=== PATIENT | female | born 1990 | race Caucasian/White ===

== ENCOUNTER 2016-06-05 11:35 | Emergency (ER) | payer SELFPAY ==
--- NOTE | ~2016-06-05 | ER ---
PATIENT'S NAME: BECKY TAYLOR [facility] AGE: 26 Y [address] ROOM: [place] [address] LOCATION: [facility] ADMIT DATE: 06/05/2016 ER/Outpatient Report DISCHARGE DATE: 06/05/2016 FAMILY PHYSICIAN: PHYSICIAN, NO ATTENDING PHYSICIAN: Trena Lux CHIEF COMPLAINT: Abdominal pain. HISTORY OF PRESENT ILLNESS: The patient states that she has had some generalized abdominal pain for the past month. However, today, it has become much more sharp and constant. States she has had chills, has been nauseated and vomiting on a daily basis in the mornings. States that she could potentially be . States she had a diarrhea stool this morning. Denies any blood of the stool or the vomitus. ALLERGIES: SEROQUEL. CURRENT MEDICATIONS: Effexor. PAST MEDICAL HISTORY: Depression. PAST SURGERIES: Tonsillectomy and adenoidectomy, ear tubes. SOCIAL HISTORY: The patient reports that she is a recovering drug addict. Has not had any alcohol for the past month. Last used meth three years ago. Last used marijuana in January. Does smoke down to about 2-3 cigarettes per day. She is here in the ER with her mother. REVIEW OF SYSTEMS: She states she has had some pain with urination and frequency of urination. Does have burning for the last 2 days. PHYSICAL EXAMINATION: VITAL SIGNS: She weighs 113.3 kg; blood pressure is 116/74; pulse of 84, respirations 20; temperature of 99.1, tympanic; and O2 saturation is 98% on room air. GENERAL: She is awake, alert, and oriented x4. SKIN: [place], warm, and dry. LUNGS: Respirations are even and nonlabored. Lung sounds were clear PATIENT'S NAME: BECKY TAYLOR [facility] AGE: 26 Y [address] ROOM: [place] [address] LOCATION: [facility] ADMIT DATE: 06/05/2016 ER/Outpatient Report DISCHARGE DATE: 06/05/2016 FAMILY PHYSICIAN: PHYSICIAN, NO ATTENDING PHYSICIAN: Trena Lux throughout. HEART: Regular rate and rhythm. ABDOMEN: Soft, nondistended. Bowel sounds are present. She is tender in the lower quadrants. LABORATORY DATA: Clean-catch UA was obtained. CBC is within normal limits. Chem panel is within normal limits. Amylase is 26 with a lipase of 64. Urine does have 500 leukocytes, white blood cells are 10-20, 10-20 epithelials also, bacteria is moderate. The patient was given Rocephin 1 g IM. IMPRESSION: Urinary tract infection. PLAN: Home, rest, fluids. Tylenol or ibuprofen as needed for fever or discomfort. Prescription was written for Bactrim DS. If symptoms persist or worsen, she is to follow up with her primary provider in the next 2-3 days or return to the ER. She verbalized understanding. IVY FRANKS APRN FOR MD JENNIFER TIWARI/michelle /[id number] d: 06/05/162111 t: 06/09/16 1341, OUTPATIENT REPORT
[2016-06-05 12:17] LABS: BILIRUBIN URINE NEGATIVE (NEGATIVE); BLOOD URINE 250 /UL (NEGATIVE); COLOR URINE YELLOW (YELLOW); GLUCOSE URINE NEGATIVE (NEGATIVE); KETONE URINE NEGATIVE (NEGATIVE); LEUKOCYTES URINE 500 /UL (NEGATIVE); NITRITE URINE NEGATIVE (NEGATIVE); PROTEIN URINE 30 mg/dL (NEGATIVE); TURBIDITY URINE CLEAR (CLEAR); UROBILINOGEN URINE NORMAL (NORMAL)
[2016-06-05 12:25] LABS: BASOPHIL % 0.3 %; EOSINOPHIL % 0.6 %; HEMATOCRIT 40.1 % (33.0-46.0); HEMOGLOBIN 13.1 g/dL (11.0-15.0); IMMATURE GRANULOCYTE % 0.3 %; LYMPHOCYTE % 15.5 %; MCH 26.5 pg (27.0-34.0); MCHC 32.7 gm/dL (32.0-36.5); MCV 81.2 fl (83.0-98.0); MONOCYTE # 0.7 K/uL (0.0-1.0); MONOCYTE % 10.9 %; MPV 10.5 fl (9.4-12.4); NEUTROPHIL # (ANC) 4.7 K/uL (1.8-7.8); NEUTROPHIL % 72.4 %; NRBC % 0 /100WBC (0-0.00); PLATELET COUNT 239 K/uL (150-450); RBC 4.94 M/uL (3.50-5.00); RDW-CV 12.9 % (11.9-14.6); WBC 6.4 K/uL (4.0-11.0)
[2016-06-05 12:31] LABS: RBC URINE FULL FIELD #/HPF (NEGATIVE)
[2016-06-05 12:32] LABS: BACTERIA URINE MODERATE (NEGATIVE); MUCUS URINE 3+ (NEGATIVE)
[2016-06-05 12:41] LABS: ALBUMIN 3.5 gm/dL (3.5-5.0); ALK PHOS 76 IU/L (33-138); ALT 35 IU/L (12-78); ANION GAP 12.5 (10.0-19.0); AST 19 IU/L (10-40); BLOOD UREA NITROGEN 8 mg/dL (6-24); CALCIUM 8.8 mg/dL (8.5-10.5); CHLORIDE 109 mMol/L (96-110); CO2 25 mMol/L (22-32); CREATININE 0.7 mg/dL (0.5-1.1); ESTIMATED GFR (MDRD EQUATION) > 60; POTASSIUM 3.5 mMol/L (3.7-5.1); SODIUM 143 mMol/L (135-145); TOTAL BILIRUBIN 0.5 mg/dL (0.0-1.5); TOTAL PROTEIN 6.8 g/dL (6.0-8.4)
[2016-09-22] MEDS ORDERED: EFFEXOR XR150 MG PO (13:43)
[2016-09-22] MEDS ORDERED: MINIPRESS2 MG PO (13:44)
[2016-09-22] MEDS ORDERED: DESYREL100 MG PO (13:44)
[2016-09-22] MEDS ORDERED: NORCO 5-325 TA1 EACH PO (16:08)
[2016-09-22] MEDS ORDERED: IBUPROFEN800 MG PO (16:08)
== END 2016-06-05 13:35 | disposition disaster alternative care site (69) ==
LOC: GMED 11:35
PROVIDERS: Nurse Practitioner Family
DX: N39.0 Urinary tract infection, site not specified (principal); F32.9 Major depressive disorder, single episode, unspecified; Z90.89 Acquired absence of other organs
CPT/HCPCS: J0696

== ENCOUNTER 2016-07-21 16:38 | Emergency (ER) | payer SELFPAY ==
--- NOTE | ~2016-07-21 | ER ---
PATIENT'S NAME: BECKY TAYLOR [facility] AGE: 26 Y [address] ROOM: [place] [address] LOCATION: [facility] ADMIT DATE: 07/21/2016 ER/Outpatient Report DISCHARGE DATE: 07/21/2016 FAMILY PHYSICIAN: PHYSICIAN, NO ATTENDING PHYSICIAN: Everett Dee Time of Arrival: 1638 hours. Time of Evaluation: 1700 hours. CHIEF COMPLAINT: Finger laceration. HISTORY OF PRESENT ILLNESS: This is a 26-year-old female, who presents to the ER, who states that she cut her left fingers approximately 30 minutes prior to arrival. The patient states that she was trying to open up a kid's toy with a kitchen knife when it slipped and cut her left pinky and ring finger knuckles. She denies any other problems at this time. She states that she is up-to-date on her tetanus shot. ALLERGIES: SEROQUEL. MEDICATIONS: Effexor. PAST MEDICAL HISTORY: Depression. PAST SURGERIES: Tonsil and adenoids. She has had tubes in her ears. SOCIAL HISTORY: She smokes cigarettes, but quit recently, last month. Denies any drug or alcohol use. REVIEW OF SYSTEMS: CONSTITUTIONAL: Denies any change in weight or fatigue. MUSCULOSKELETAL: No weakness or myalgias. HEME: No easy bruising or bleeding. SKIN: Has lacerations to her left fifth and fourth fingers. PHYSICAL EXAMINATION: VITAL SIGNS: Height 5 feet and 3 inches stated, weight 113.5 kg taken, blood pressure is 125/65, pulse 78, respirations 74, temperature is 97.8 degrees tympanically, and saturations 99% on room air. Cindy Coma Score is 15. PATIENT'S NAME: BECKY TAYLOR [facility] AGE: 26 Y [address] ROOM: [place], [place] [address] LOCATION: [facility] ADMIT DATE: 07/21/2016 ER/Outpatient Report DISCHARGE DATE: 07/21/2016 FAMILY PHYSICIAN: PHYSICIAN, NO ATTENDING PHYSICIAN: Everett Dee GENERAL: Alert, calm, well-developed, 26-year-old, in no acute distress. EXTREMITIES: No clubbing or cyanosis. She does have full range of motion of her left hand. She has good strength with flexion and extension on both her fourth and fifth digits of her left hand. SKIN: She has a 2 cm laceration noted to the knuckle of her pinky finger, it is not actively bleeding at this time. She has a 1 cm laceration noted to the left ring finger, that is not actively bleeding. LABORATORY DATA AND X-RAYS: None were done. IMPRESSION: A 2 cm laceration to the left fifth digit and she has a 1 cm laceration to her left ring finger. ASSESSMENT AND PLAN: I did cleanse the area with normal saline. Numbed the site with 1% lidocaine. Cleansed the site with Betadine, flushed thoroughly with normal saline, and repaired the laceration using 5-0 Ethilon. The patient did tolerate this well. We did place antibiotic ointment and bandage to this hand. We will dismiss her to home. She may take Tylenol as needed. She should follow up with her primary care physician in 7 days for suture removal. The patient understands and agrees with care. DEANGELO WALL PA-C FOR MD JOHN PALMA/michelle /[id number] d: 07/21/16 2310 t: 07/22/16 1738, OUTPATIENT REPORT
[2016-09-22] MEDS ORDERED: EFFEXOR XR150 MG PO (13:43)
[2016-09-22] MEDS ORDERED: MINIPRESS2 MG PO (13:44)
[2016-09-22] MEDS ORDERED: DESYREL100 MG PO (13:44)
[2016-09-22] MEDS ORDERED: IBUPROFEN800 MG PO (16:08)
[2016-09-22] MEDS ORDERED: NORCO 5-325 TA1 EACH PO (16:08)
== END 2016-07-21 17:24 | disposition disaster alternative care site (69) ==
LOC: GACC 16:38
PROC: 0HQGXZZ Repair Left Hand Skin, External Approach (ICD-10-PCS; principal; 2016-07-21)
DX: S61.217A Laceration without foreign body of left little finger without damage to nail, initial encounter (principal); S61.215A Laceration without foreign body of left ring finger without damage to nail, initial encounter; F32.9 Major depressive disorder, single episode, unspecified; F17.210 Nicotine dependence, cigarettes, uncomplicated; Z79.899 Other long term (current) drug therapy; Z88.8 Allergy status to other drugs, medicaments and biological substances; Z98.890 Other specified postprocedural states; W26.0XXA Contact with knife, initial encounter; Y93.89 Activity, other specified

== ENCOUNTER 2016-09-22 20:20 | Emergency (ER) | payer SELFPAY ==
--- NOTE | ~2016-09-22 | ER ---
PATIENT'S NAME: BECKY TAYLOR [facility] AGE: 26 Y [address] ROOM: [place] [address] LOCATION: [facility] ADMIT DATE: 09/22/2016 ER/Outpatient Report DISCHARGE DATE: 09/22/2016 FAMILY PHYSICIAN: Physician, Unknown ATTENDING PHYSICIAN: Everett Dee Time of Arrival: 2020 hours. Time of Evaluation: 2020 hours. CHIEF COMPLAINT: Bleeding from incision. HISTORY OF PRESENT ILLNESS: The patient was seen here in the ER earlier, diagnosed with an ectopic , was taken back to surgery by Dr. Saeed from OB [facility]. The patient states that they did have to take her right fallopian tube due to the ectopic . States that she went home approximately 7:30 this evening, and then just prior to arrival, she was lying in bed, and the left lower abdominal incisional area popped open and began to bleed. She denies any trauma to her abdomen since the surgery. She has not had any nausea, no vomiting. She has not had fever or chills. ALLERGIES: SEROQUEL. CURRENT MEDICATIONS: On her chart and reviewed by me. PAST MEDICAL HISTORY: Depression and posttraumatic stress disorder. PAST SURGICAL HISTORY: Tonsils and adenoids, bilateral ear tubes, and recent laparoscopy for the ectopic . SOCIAL HISTORY: She smokes 2 cigarettes a day. Denies use of tobacco or drugs. She presents to the ER accompanied by her father. REVIEW OF SYSTEMS: All negative other than those mentioned in the HPI. PHYSICAL EXAMINATION: VITAL SIGNS: She weighs 114 kg, blood pressure is 111/58, pulse is 68, respirations 18, temperature of 99.8, O2 saturation is 97% on room air. PATIENT'S NAME: BECKY TAYLOR [facility] AGE: 26 Y [address] ROOM: [place], [place] [address] LOCATION: [facility] ADMIT DATE: 09/22/2016 ER/Outpatient Report DISCHARGE DATE: 09/22/2016 FAMILY PHYSICIAN: Physician, Unknown ATTENDING PHYSICIAN: Everett Dee GENERAL: She is awake, alert, and oriented x4. SKIN: [place], warm, and dry. RESPIRATIONS: Even and nonlabored. Lung sounds are clear throughout. HEART: Regular rate and rhythm. ABDOMEN: Soft and nondistended. She does have a gaping open of left lower abdominal trocar incision area that is bruised around that area. Pressure was applied. Bleeding was contained. LABORATORY DATA AND X-RAYS: CBC shows a white count of 21.3, hemoglobin is 9.7 with hematocrit of 28.4. Sodium is 139, potassium is 4, chloride 110, her BUN is 8, with creatinine 0.9. Lactate was 4.5. Procalcitonin was normal. EMERGENCY DEPARTMENT COURSE: Lab work was completed. Saline lock was initiated. The patient's vital signs remained stable. The patient was reviewed with Dr. Dee. The trocar incisional area was cleansed well with saline, anesthetized with 1% lidocaine with epinephrine. 4-0 Ethilon was used to do a [id number] stitch. The patient tolerated the procedure well. Steri- Strips were applied over the sutures as well as in the umbilical area. Dressing was applied. A small amount of bloody drainage was noted. The patient states she has pain pills at home and will take one when she gets home. The patient was assisted out to her car at 2133 hours. She returned at 2225 hours because of the bleeding from the area again. Reviewed with Dr. Dee. Dressings were removed. Incisions remained clean. Surgicel was applied to the areas, and a nonadherent dressing was then applied with an ABD on top. IMPRESSION: Open incisional area with bleeding. PLAN: Home, rest. Ice to the lower abdominal area. No heavy lifting. Continue to drink fluids. Follow up with Dr. Saeed in the a.m. the patient and her father verbalized understanding. IVY FRANKS APRN FOR MD JENNIFER PALMA/michelle /[id number] d: 09/23/16 0138 t: 09/25/16 1229, OUTPATIENT REPORT
[2016-09-22 20:35] LABS: BASOPHIL % 0.1 %; HEMOGLOBIN 9.7 g/dL (11.0-15.0); IMMATURE GRANULOCYTE # 0.2 K/uL (0.0-0.3); IMMATURE GRANULOCYTE % 0.8 %; LYMPHOCYTE # 0.9 K/uL (0.8-4.0); LYMPHOCYTE % 4.4 %; MCHC 34.2 gm/dL (32.0-36.5); MCV 83.8 fl (83.0-98.0); MONOCYTE # 0.3 K/uL (0.0-1.0); MONOCYTE % 1.3 %; MPV 10.5 fl (9.4-12.4); NEUTROPHIL # (ANC) 19.9 K/uL (1.8-7.8); NEUTROPHIL % 93.4 %; NRBC % 0 /100WBC (0-0.00); PLATELET COUNT 255 K/uL (150-450); RDW-CV 13.2 % (11.9-14.6)
[2016-09-22 20:36] LABS: HEMATOCRIT 28.4 % (33.0-46.0); MCH 28.6 pg (27.0-34.0); RBC 3.39 M/uL (3.50-5.00); WBC 21.3 K/uL (4.0-11.0)
[2016-09-22 20:57] LABS: ALBUMIN 2.8 gm/dL (3.5-5.0); ALK PHOS 50 IU/L (33-138); ALT 19 IU/L (12-78); AST 10 IU/L (10-40); BLOOD UREA NITROGEN 8 mg/dL (6-24); CHLORIDE 110 mMol/L (96-110); CO2 18 mMol/L (22-32); CREATININE 0.9 mg/dL (0.5-1.1); ESTIMATED GFR (MDRD EQUATION) > 60; SODIUM 139 mMol/L (135-145); TOTAL PROTEIN 5.2 g/dL (6.0-8.4)
[2016-09-22 21:00] LABS: CALCIUM 7.4 mg/dL (8.5-10.5); TOTAL BILIRUBIN 0.5 mg/dL (0.0-1.5)
== END 2016-09-22 21:33 | disposition disaster alternative care site (69) ==
LOC: GMED 20:20
PROVIDERS: Nurse Practitioner Family
PROC: 0JQ80ZZ Repair Abdomen Subcutaneous Tissue and Fascia, Open Approach (ICD-10-PCS; principal; 2016-09-22)
DX: N99.820 Postprocedural hemorrhage of a genitourinary system organ or structure following a genitourinary system procedure (principal); F17.210 Nicotine dependence, cigarettes, uncomplicated; F32.9 Major depressive disorder, single episode, unspecified; F43.10 Post-traumatic stress disorder, unspecified; Z98.890 Other specified postprocedural states; Z88.8 Allergy status to other drugs, medicaments and biological substances; Z79.899 Other long term (current) drug therapy

== ENCOUNTER → 2016-09-22 | Day surgery (SDC) | payer SELFPAY ==
[~2016-09-22] MED LIST: DESYREL100 MG PO; EFFEXOR XR150 MG PO; IBUPROFEN800 MG PO; MINIPRESS2 MG PO; NORCO 5-325 TA1 EACH PO
--- NOTE | ~2016-09-22 | OR ---
PATIENT'S NAME: BEKCY TAYLOR [facility] AGE: 26 Y [address] ROOM: [place] [address] LOCATION: [facility] ADMIT DATE: 09/22/2016 OR/Procedure Report DISCHARGE DATE: FAMILY PHYSICIAN: PHYSICIAN, NO ATTENDING PHYSICIAN: WILBERT SAEED SURGEON: Wilbert Saeed MD WELLNESS DIRECTOR: None. DATE OF PROCEDURE: 09/22/2016 PREOPERATIVE DIAGNOSIS: Suspected ruptured ectopic . POSTOPERATIVE DIAGNOSIS: Suspected ruptured ectopic . PROCEDURE PERFORMED: Laparoscopic right salpingectomy and evacuation of hemoperitoneum. ANESTHESIA: General. FINDINGS: 700 mL of clotted blood in abdomen. Ruptured right ectopic and right fallopian tube. Normal left fallopian tube. Normal uterus. Normal ovaries bilaterally. ESTIMATED BLOOD LOSS: 700 mL of blood in the belly prior to start of the case. SURGICAL ESTIMATED BLOOD LOSS: 10 mL. COMPLICATIONS: None. INDICATIONS: The patient is a 26-year-old female, who presented to the ER today with right lower quadrant pain. She was found to have a beta-hCG quant of 5900 and nothing in the uterus on transvaginal ultrasound. She also was noted to have a heterogeneous mass in her right adnexa and free fluid in the pelvis. Therefore, ectopic was suspected and surgical evaluation was recommended. Please see H and P for consent note. DESCRIPTION OF PROCEDURE: The patient was taken to the operating room where she was placed under general anesthesia without complications. She was placed in dorsal lithotomy. She was prepped and draped in the usual sterile fashion. Bladder was drained. A time-out was performed. A speculum was placed in her vagina and the cervix was visualized and a Hulka tenaculum was placed. The speculum was removed. Gloves were changed. Attention was then placed to the patient's abdomen where 0.25% Marcaine with epinephrine was injected infraumbilically. A 5-mm incision was made. Using the Veress needle, the abdomen was entered. Opening pressure was less than 15 and the abdomen was PATIENT'S NAME: BECKY TAYLOR [facility] AGE: 26 Y [address] ROOM: [place] [address] LOCATION: [facility] ADMIT DATE: 09/22/2016 OR/Procedure Report DISCHARGE DATE: FAMILY PHYSICIAN: PHYSICIAN, NO ATTENDING PHYSICIAN: WILBERT SAEED insufflated to 15 mmHg. A 5 mm trocar was placed. A camera was placed through this and 700 mL of hemoperitoneum was noted. A 10 mm trocar was placed in the left lower quadrant, 2 cm medial, and 2 cm superior to the anterior superior iliac spine. This area was injected with 0.25% Marcaine with epinephrine. A 10 mm incision was made and a 10 mm trocar was placed. The same was performed on the patient's right lower quadrant with a 5 mm trocar. The right fallopian tube was noted to have a ruptured ectopic in it. The left fallopian tube appeared normal. Both ovaries appeared normal. Using the LigaSure device, the right fallopian tube was ligated and cut and removed. It was placed in a 10 mm bag and removed through the 10 mm port. This was then reintroduced into the abdomen and the hemoperitoneum was evacuated. The surgical site was assessed and noted to be hemostatic. All trocars and instruments were removed from the patient's abdomen. Given the patient's obesity, it was not possible to close with 0 Vicryl on a UR needle. The fascia therefore was not closed. The skin was closed with 4-0 Monocryl in a subcuticular fashion on all incision sites followed by Steri-Strips and pressure dressings. Instrument, sponge, and needle counts were correct prior to abdominal closure and at the conclusion of the case. DISPOSITION: The patient is stable to PACU. MD ALBANIA SOLANO/michelle /[id number] d: 09/22/16 175 t: 09/27/16 1132, OPERATIVE SUMMARY
--- NOTE | ~2016-09-22 | ER ---
PATIENT'S NAME: BECKY TAYLOR [facility] AGE: 26 Y [address] ROOM: [place] [address] LOCATION: [facility] ADMIT DATE: 09/22/2016 ER/Outpatient Report DISCHARGE DATE: FAMILY PHYSICIAN: PHYSICIAN, NO ATTENDING PHYSICIAN: WILBERT SAEED TIME OF ARRIVAL: 1001 hours. TIME OF EVALUATION: 1001 hours. CHIEF COMPLAINT: Lower abdominal pain. HISTORY OF PRESENT ILLNESS: The patient is a 26-year-old female who presents to the emergency department today with a chief complaint of lower abdominal pain. She reports this started earlier this morning. She denies any fevers or chills. No urinary frequency, urgency, or painful urination. She is having some vaginal bleeding as well. She is having some nausea and vomiting x2. She denies any diarrhea. No blood in her stool. It is a crampy-type sharp pain. It is moderate in severity. The patient denies any vaginal discharge. She denies that she could be . PAST MEDICAL HISTORY: Anxiety and depression. PAST SURGICAL HISTORY: Tonsillectomy and myringotomy. SOCIAL HISTORY: The patient denies any tobacco use. She reports occasional alcohol use. She denies any illicit drug use. ALLERGIES: SEROQUEL. MEDICATIONS: Please see list. PRIMARY CARE DOCTOR: None. REVIEW OF SYSTEMS: PATIENT'S NAME: BECKY TAYLOR [facility] AGE: 26 Y [address] ROOM: [place] [address] LOCATION: [facility] ADMIT DATE: 09/22/2016 ER/Outpatient Report DISCHARGE DATE: FAMILY PHYSICIAN: PHYSICIAN, NO ATTENDING PHYSICIAN: WILBERT SAEED All systems are reviewed by myself and negative with the exception of those discussed in HPI and past medical history. PHYSICAL EXAMINATION: VITAL SIGNS: Weight 111.3 kg. Blood pressure 135/98, pulse 83, respiratory rate 16, temperature 98.6, and oxygen saturation 96% on room air. GENERAL: The patient is a 26-year-old female, who appears stated age, in mild acute distress; obese. HEENT: Normocephalic and atraumatic. Pupils are equal, round, and reactive to light. NECK: Supple. There is no nuchal rigidity. CARDIOVASCULAR: Regular rate and rhythm. No murmurs, rubs, or gallops. LUNGS: Clear to auscultation bilaterally. No wheezes, rales, or rhonchi. ABDOMEN: Soft with diffuse tenderness to palpation. There is voluntary guarding. No rebound. No rigidity. MUSCULOSKELETAL: The patient moves all 4 extremities. SKIN: Warm and dry. There are no rashes or lesions noted. LABORATORY DATA AND X-RAYS: Labs and x-rays are obtained. CMP is unremarkable except for CO2 of 21. LFTs normal. CBC is normal. Lactate is normal. Procalcitonin is less than 0.05. Urine hCG is positive. Urinalysis shows 100 leukocyte esterase, negative nitrites, 100 protein, 5 ketones, 250 blood, 5 to 10 wbc's, full-field rbc's, 10 to 20 epithelials, and few bacteria. Serum hCG is 5940. Ultrasound is obtained. I have discussed the results with the tech and the radiologist. There is no evidence of IUP. There is blood in the pelvis with free fluid noted. There is a heterogeneous mass in the right adnexa concerning for ectopic . IMPRESSION: 1. Right adnexal ectopic with concern for rupture. 2. Initial visit. EMERGENCY DEPARTMENT COURSE: The patient brought back to the examination room. Seen and evaluated immediately upon arrival by myself. IV is established. Laboratory analysis and imaging are obtained as described above. Those results are obtained. I have discussed results with the patient and her mother who is at the bedside. I have contacted Dr. Wilbert Saeed, who is on-call for CREPING MACHINE OPERATOR HELPER. She has seen and evaluated the patient down here in the emergency department. The patient will proceed directly to the operating room for management of this ectopic with suspected rupture. DISPOSITION: The patient is discharged to the operating room in stable condition. PATIENT'S NAME: BECKY TAYLOR [facility] AGE: 26 Y [address] ROOM: [place], [place] [address] LOCATION: [facility] ADMIT DATE: 09/22/2016 ER/Outpatient Report DISCHARGE DATE: FAMILY PHYSICIAN: PHYSICIAN, NO ATTENDING PHYSICIAN: WILBERT SAEED DO GIOVANNY NUGENT/modl /[id number] d: 09/22/16 1758 t: 09/23/16 0908, OUTPATIENT REPORT
--- NOTE | ~2016-09-22 | CON ---
PATIENT'S NAME: BECKY TAYLOR [facility] AGE: 26 Y [address] ROOM: [place] [address] LOCATION: [facility] [place] ADMIT DATE: 09/22/2016 Consultation DISCHARGE DATE: FAMILY PHYSICIAN: PHYSICIAN, NO ATTENDING PHYSICIAN: HALIMA CRANE DATE OF CONSULTATION: 09/22/2016 REFERRING PHYSICIAN: Kaden Chiang DO REASON FOR CONSULTATION: Ectopic . HISTORY OF PRESENT ILLNESS: The patient is a 26-year-old G3, P0-0-2-0, who presented to the ER today complaining of right lower quadrant pain. The patient was found to have a beta hCG quant of 5900 and nothing in the uterus on ultrasound. She was also found to have free fluid in her pelvis. Given these findings, my consultation was requested. The patient is hemodynamically stable. She did not know she was before today. PAST MEDICAL HISTORY: Depression. PAST SURGICAL HISTORY: None. MEDICATIONS: 1. Lamictal. 2. Trazodone. ALLERGIES: SEROQUEL. OBSTETRICAL/GYNECOLOGICAL HISTORY: She is G3, P0-0-2-0. She has a history of 2 spontaneous miscarriages early in the first trimester. She also has a history of abnormal Pap smear and a history of gonorrhea. She denies a history of chlamydia. SOCIAL HISTORY: She is a smoker. She denies alcohol or drug use. She is currently on probation, but does not tell me why. FAMILY HISTORY: Noncontributory. PATIENT'S NAME: BECKY TAYLOR [facility] AGE: 26 Y [address] ROOM: [place] [address] LOCATION: [facility] [place] ADMIT DATE: 09/22/2016 Consultation DISCHARGE DATE: FAMILY PHYSICIAN: PHYSICIAN, NO ATTENDING PHYSICIAN: HALIMA CRANE REVIEW OF SYSTEMS: Negative except as noted in the HPI. PHYSICAL EXAMINATION: VITAL SIGNS: Blood pressure 135/98, temperature 98.6, weight 111.3 kg, pulse 83, and respirations 16. She is saturating 96% on room air. GENERAL: She is alert and oriented, in no acute distress. ABDOMEN: Tender to palpation in the right lower quadrant. LABORATORY WORK: Hemoglobin of 12.9, platelets of 249. Her blood type is a positive. Antibody screen negative. Urinalysis is significant only for a large amount of red blood cells. Her beta HCG quant is 5940. Her CMP is unremarkable. Transvaginal ultrasound shows nothing in the uterus and suspicious heterogeneous mass in the area of the right ovary. She also has free fluid in the pelvis. ASSESSMENT AND PLAN: The patient is a 26-year-old G3, P0-0-2-0, with likely ruptured right ectopic . I discussed with the patient that I recommend surgical exploration with laparoscopy and removal of the ectopic . We discussed that this is most likely in the fallopian tube, and although it seems like it is on the right tube on imaging, it could also be on the left tube. Sometimes, we are able to remove the from the tube and salvage the tube, but most likely, when it is ruptured, we will have to remove the fallopian tube. She was counseled that she will still have one remaining fallopian tube; however, if this is due to a past infection, she may not be able to conceive with that too. The patient was counseled about the risks of surgery including bleeding, infection, and damage to surrounding organs and tissues including bowel, bladder, blood vessels, ureters, or nerves. She was also counseled about the risk of needing additional procedures or hospitalizations due to any complications. We will proceed with laparoscopy and right salpingectomy, possible left salpingectomy, and possible exploratory laparotomy. All questions were answered to the best of my knowledge. MD ALBANIA SOLANO/michelle /[id number] d: 09/22/16 1657 t: 09/27/16 1129, CONSULTATION REPORT
[2016-09-22 10:30] LABS: BASOPHIL % 0.1 %; EOSINOPHIL # 0.1 K/uL (0.0-0.5); EOSINOPHIL % 0.6 %; HEMATOCRIT 37.9 % (33.0-46.0); HEMOGLOBIN 12.9 g/dL (11.0-15.0); IMMATURE GRANULOCYTE # 0.1 K/uL (0.0-0.3); IMMATURE GRANULOCYTE % 0.6 %; LYMPHOCYTE # 2.5 K/uL (0.8-4.0); LYMPHOCYTE % 28.1 %; MCH 27.8 pg (27.0-34.0); MCV 81.7 fl (83.0-98.0); MONOCYTE # 0.5 K/uL (0.0-1.0); MONOCYTE % 5.9 %; MPV 10.3 fl (9.4-12.4); NEUTROPHIL # (ANC) 5.8 K/uL (1.8-7.8); NEUTROPHIL % 64.7 %; NRBC % 0 /100WBC (0-0.00); PLATELET COUNT 249 K/uL (150-450); RBC 4.64 M/uL (3.50-5.00); RDW-CV 13.1 % (11.9-14.6)
[2016-09-22 10:49] LABS: ALBUMIN 3.4 gm/dL (3.5-5.0); ALK PHOS 60 IU/L (33-138); ALT 23 IU/L (12-78); ANION GAP 12.8 (10.0-19.0); AST 13 IU/L (10-40); BLOOD UREA NITROGEN 9 mg/dL (6-24); CALCIUM 8.5 mg/dL (8.5-10.5); CHLORIDE 110 mMol/L (96-110); CO2 21 mMol/L (22-32); CREATININE 0.6 mg/dL (0.5-1.1); ESTIMATED GFR (MDRD EQUATION) > 60; POTASSIUM 3.8 mMol/L (3.7-5.1); SODIUM 140 mMol/L (135-145); TOTAL PROTEIN 6.3 g/dL (6.0-8.4)
[2016-09-22 10:51] LABS: TOTAL BILIRUBIN 0.7 mg/dL (0.0-1.5)
[2016-09-22 11:22] LABS: BLOOD URINE 250 /UL (NEGATIVE); COLOR URINE RED (YELLOW); GLUCOSE URINE NEGATIVE (NEGATIVE); KETONE URINE 5 mg/dL (NEGATIVE); LEUKOCYTES URINE 100 /UL (NEGATIVE); NITRITE URINE NEGATIVE (NEGATIVE); PROTEIN URINE 100 mg/dL (NEGATIVE); TURBIDITY URINE 1+ (CLEAR); UROBILINOGEN URINE 1 mg/dL (NORMAL)
[2016-09-22 11:23] LABS: BACTERIA URINE FEW (NEGATIVE); MUCUS URINE 1+ (NEGATIVE); RBC URINE FULL FIELD #/HPF (NEGATIVE)
[2016-09-22 11:24] LABS: AMORPHOUS URINE 1+ (NEGATIVE)
== END | disposition disaster alternative care site (69) ==
LOC: GMED 10:01 → GSDC 13:05
PROVIDERS: Emergency Medicine
PROC: 10T24ZZ Resection of Products of Conception, Ectopic, Percutaneous Endoscopic Approach (ICD-10-PCS; principal; 2016-09-22)
PROC: 0UT54ZZ Resection of Right Fallopian Tube, Percutaneous Endoscopic Approach (ICD-10-PCS; 2016-09-22)
DX: O00.10 Tubal pregnancy without intrauterine pregnancy (principal); F41.9 Anxiety disorder, unspecified; F32.9 Major depressive disorder, single episode, unspecified; Z98.890 Other specified postprocedural states; Z79.899 Other long term (current) drug therapy; Z88.8 Allergy status to other drugs, medicaments and biological substances
CPT/HCPCS: J1885; J2175; J2405; J2550; J3010; J7030

== ENCOUNTER 2016-09-23 01:07 | Emergency (ER) | payer SELFPAY ==
--- NOTE | ~2016-09-23 | ER ---
PATIENT'S NAME: [facility]KY [facility] AGE: 26 Y [address] ROOM: [place] [id number] LOCATION: ED ADMIT DATE: 09/23/2016 ER/Outpatient Report DISCHARGE DATE: 09/23/2016 FAMILY PHYSICIAN: PHYSICIAN, NO ATTENDING PHYSICIAN: Everett Dee Admission date and time documented on the medical record. I saw the patient at 0115 hours. CHIEF COMPLAINT: Postop ectopic with bleeding from incisional site, left lower quadrant of the abdomen. HISTORY OF PRESENT ILLNESS: This patient is a 26-year-old female who has had bleeding from the incisional site, left lower quadrant, that she got with a surgical procedure of ectopic . Continues to ooze from this site and soaked multiple dressings with blood. She dropped her hemoglobin from preop of 12.9 to 9.7 earlier tonight. She gets a little lightheaded with positional changes at times. Most of the time she is doing well. Initially put a suture in the wound site and clotting dressings without improvement. Did come back again this morning with her dressing soaked with blood. Really no other complaints. HOME MEDICATIONS: See attached medication list. ALLERGIES: SEROQUEL. SOCIAL HISTORY: The patient smokes about two cigarettes a day. Does drink alcohol. Has used illicit drugs. SIGNIFICANT PAST MEDICAL HISTORY: Posttraumatic stress disorder, depression, anxiety, tobacco abuse, alcohol abuse, illicit drug abuse. OPERATIONS: Tonsillectomy, adenoidectomy, bilateral tympanostomy tubes. REVIEW OF SYSTEMS: All systems reviewed by me are negative with the exception of those discussed in the history of present illness. PHYSICAL EXAMINATION: PATIENT'S NAME: BECKY [facility] AGE: 26 Y [address] ROOM: [place] [id number] LOCATION: ED ADMIT DATE: 09/23/2016 ER/Outpatient Report DISCHARGE DATE: 09/23/2016 FAMILY PHYSICIAN: PHYSICIAN, NO ATTENDING PHYSICIAN: Everett Dee VITAL SIGNS: Temperature 99.5, pulse 87, respirations 15, blood pressure 137/59, O2 saturation on room air is 95%. EMERGENCY DEPARTMENT COURSE: On examination of the left lower quadrant incision site, there was just steady oozing of blood from the wound. I did discuss the patient with Dr. Saeed, office sweeper. Dr. Saeed did suggest trying to cauterize the area with silver nitrate sticks and then put the sutures back in. I did discuss this with the patient, she is agreeable to try this. I prepped the area with Betadine, normal saline, and sterile drapes. Took out the suture that had been placed earlier. Used 3 silver nitrate sticks to cauterize deep into the wound. Put some lidocaine for anesthesia and placed 3 figure-of- eight sutures 2-0 Ethilon to close the wound. The patient tolerated this procedure. Did dress the wound and it had no bleeding at the time of dismissal. LABORATORY DATA AND X-RAYS: The patient's white count was 16,400; differential of 91 segs, 6 lymphs, 3 monos; hemoglobin was 8.7 with hematocrit of 26.4; platelet count is 216,000. IMPRESSION: Bleeding from stab wound site postoperatively. The patient had procedure for ectopic . Silver nitrate cautery followed by 3 [id number] sutures placed in the wound. At the point of being in the emergency department and prior to leaving the emergency department, she was not having any active bleeding. PLAN: The patient is to observe for any additional bleeding. Activity, fluids, and diet as tolerated. Continue present home medications and care. Follow up with personal physician as needed or as scheduled. May need to have her sutures looked at in about 7 to 10 days. Discussion ensued with the patient concerning my findings and recommendations, she understands. MD ZAINAB PALMA/modl /[id number] d: 09/23/16 0438 t: 09/23/16 1809, OUTPATIENT REPORT
[2016-09-23 01:50] LABS: HEMATOCRIT 26.4 % (33.0-46.0); HEMOGLOBIN 8.7 g/dL (11.0-15.0); IMMATURE GRANULOCYTE # 0.1 K/uL (0.0-0.3); IMMATURE GRANULOCYTE % 0.4 %; LYMPHOCYTE % 5.8 %; MCV 84.9 fl (83.0-98.0); MONOCYTE # 0.5 K/uL (0.0-1.0); MONOCYTE % 3.2 %; MPV 10.7 fl (9.4-12.4); NEUTROPHIL # (ANC) 14.9 K/uL (1.8-7.8); NEUTROPHIL % 90.6 %; NRBC % 0 /100WBC (0-0.00); PLATELET COUNT 216 K/uL (150-450); RBC 3.11 M/uL (3.50-5.00); RDW-CV 13.2 % (11.9-14.6); WBC 16.4 K/uL (4.0-11.0)
== END 2016-09-23 02:38 | disposition disaster alternative care site (69) ==
LOC: GMED 01:07
PROVIDERS: Emergency Medicine
PROC: 0HQ7XZZ Repair Abdomen Skin, External Approach (ICD-10-PCS; principal; 2016-09-23)
DX: N99.820 Postprocedural hemorrhage of a genitourinary system organ or structure following a genitourinary system procedure (principal); F17.210 Nicotine dependence, cigarettes, uncomplicated; F43.10 Post-traumatic stress disorder, unspecified; F41.9 Anxiety disorder, unspecified; F32.9 Major depressive disorder, single episode, unspecified; F10.10 Alcohol abuse, uncomplicated; F19.10 Other psychoactive substance abuse, uncomplicated; Z88.8 Allergy status to other drugs, medicaments and biological substances; Z90.89 Acquired absence of other organs; Z79.899 Other long term (current) drug therapy